=== PATIENT | female | born 1945 | race Caucasian/White ===

== ENCOUNTER 2017-08-10 10:15 | Day surgery (SDC) | payer OTHER ==
[~2017-08-10] VITALS: Ht 165.1 cm; Wt 70.2 kg
[~2017-08-10 10:15] MED LIST: ACET-1757 PO; ACET325T14 PO; ACYC-113 PO; ACYC-114 PO; ALBU8.5H5 INH; ALLO300T PO; AZIT250T PO; BENZ1LOZ51 PO; BUME0.5T PO; CEFD300C37 PO; CHOL2000 PO; CHOL5000 PO; CIPR500S2 PO; CLOT10TR PO; CYAN10002 IM; DOXY100T PO; DULO60CA7 PO; ENOX40SY4 SQ; FLUC100T4 PO; FLUT1DIS3 INH; FOLI-17 PO; FURO-93 PO; HYDR-3237 PO; HYDR-3245 PO; HYDR1TAB16 PO; KETO5DRO RIGHTEYE; LACT-51 PO; LEVE100020 PO; LEVE500T53 PO; LEVO250T23 PO; LEVO500S PO; LEVO500T47 PO; LORA-446 PO; LOVA10TA PO; METR500T PO; MIRT30TA4 PO; Magic Mouthwash; NICO-486 TD; ONDA4TAB13 PO; ONDA4TAB7 PO; OSEL75CA PO; PARO10TA56 PO; PHEN100C PO; PHEN100O3 PEG; POLY17PO5 PO; POTA20PA PO; POTA8CAP PO; PRED10TA PO; PRED20TA PO; PRIM250T PO; PRIM250T34 PO; SERT25TA PO; SIMV20TA3 PO; SMZ/TMP PO; TBO-300S SQ; TRAM50TA2 PO; VENL37.52 PO; VENL75TA2 PO; WARF3TAB; WARF3TAB PO; cyclobenzaprine; potassium
[2017-08-10] MEDS ORDERED: SODIUM CHLORIDE 0.9% 1,000 ML IV SCH (10:38)
[2017-08-10 11:21] VITALS: BP 118/70
[2017-08-10] MEDS ORDERED: LIDOCAINE 2%, 20ML ONE (11:28)
[2017-08-10] MEDS ORDERED: FENTANYL PF 100 MCG/2ML ONE (11:41)
[2017-08-10] MEDS ORDERED: NALOXONE 1 MG/ML, 2ML ONE (11:42)
[2017-08-10] MEDS ORDERED: MIDAZOLAM 1 MG/ML, 5ML ONE (11:42)
[2017-08-10] MEDS ORDERED: FLUMAZENIL 0.1 MG/1 ML, 5ML ONE (11:42)
[2017-08-10 12:05] LABS: HEMATOCRIT 25.8 % (34.6-47.8); HEMOGLOBIN 8.7 g/dL (11.7-16.4)
[2017-08-10 12:06] LABS: DIFF TOTAL CELLS COUNTED 100 CELL DIFF
[2017-08-10 12:51] LABS: ANISOCYTOSIS 1+; OVALOCYTES 1+; VERIFY COUNTS? YES
[2017-08-10 12:53] LABS: SCHISTOCYTES 1+
== END 2017-08-10 14:35 ==
LOC: OUT 10:15
PROVIDERS: ATTEND Internal Medicine Hematology & Oncology
DX: C95.90 Leukemia, unspecified not having achieved remission (principal); Z88.6 Allergy status to analgesic agent; J44.9 Chronic obstructive pulmonary disease, unspecified; Z85.118 Personal history of other malignant neoplasm of bronchus and lung; Z87.891 Personal history of nicotine dependence; Z98.890 Other specified postprocedural states
CPT/HCPCS: 36415; 38221; 77012; 85025; 85097; 88237; 88264; 88280; 88305; 88311; 88313; 99156; G0364; J2250; J3010; J3490; J7030; 99157; J2310

== ENCOUNTER 2017-10-12 16:17 | Inpatient (IN) | payer OTHER ==
[~2017-10-12] VITALS: Ht 165.1 cm; Wt 71.6 kg
[~2017-10-12 16:17] MED LIST changes: +ONDA4TAB13 SL
[2017-10-12 18:28] LABS: ASPARTATE AMINO TRANSFERASE 37 U/L (15-37); BLOOD UREA NITROGEN 15 mg/dL (7-18)
[2017-10-12 18:48] LABS: HEMATOCRIT 27.1 % (34.6-47.8); HEMOGLOBIN 9.3 g/dL (11.7-16.4)
[2017-10-12 18:50] LABS: WHITE BLOOD COUNT 0.7 x10^3/uL (3.4-10)
[2017-10-12 18:53] LABS: DIFF TOTAL CELLS COUNTED 100 CELL DIFF
[2017-10-12 18:58] LABS: VERIFY COUNTS? YES
[2017-10-12 18:59] LABS: ANISOCYTOSIS 1+; POLYCHROMASIA 1+
[2017-10-12] MEDS ORDERED: SODIUM CHLORIDE 0.9% 1,000ML IVBOLUS ONE (19:30)
[2017-10-12] MEDS ORDERED: CEFTRIAXONE PMX 1GM/50ML 50 ML ONE (19:49)
[2017-10-12] MEDS ORDERED: SODIUM CHLORIDE FLUSH 10ML SYR IVF PRN (20:00)
[2017-10-12] MEDS ORDERED: VANCOMYCIN PER PHARMACY MC ONE (20:00)
[2017-10-12] MEDS ORDERED: PHARMACOKINETIC CONSULTATION MC ONE ×2 (20:00→23:45)
[2017-10-12] MEDS ORDERED: CEFTRIAXONE PMX 1GM/50ML 50 ML IVPB ONE (20:00)
[2017-10-12] MEDS ORDERED: VANCOMYCIN 1,400 MG in SODIUM CHLORIDE 0.9% 250 ML IV ONE (20:00)
[2017-10-12] MEDS ORDERED: BISACODYL 10 MG SUPP PR PRN (20:30)
[2017-10-12] MEDS ORDERED: VANCOMYCIN PER PHARMACY MC PRN (20:30)
[2017-10-12] MEDS ORDERED: POLYETHYLENE GLYCOL 17 GM PACKET PO PRN (20:30)
[2017-10-12] MEDS: CEFTRIAXONE PMX 1GM/50ML 50 ML IV SCH (20:36)
[2017-10-12 23:18] VITALS: BP 127/65
[2017-10-12] MEDS ORDERED: PHARMACOKINETIC MONITORING MC PRN (23:45)
[2017-10-12] MEDS: ACETAMINOPHEN 325 MG TABLET PO PRN (23:57)
[2017-10-12] MEDS: LEVETIRACETAM 500 MG TABLET PO SCH (23:58)
[2017-10-12] MEDS: ACYCLOVIR 400 MG TABLET PO SCH (23:58)
[2017-10-12] MEDS: PRIMIDONE 250 MG TABLET PO SCH (23:58)
[2017-10-12] MEDS: SIMVASTATIN 20 MG TABLET PO SCH (23:59)
[2017-10-12] MEDS: SODIUM CHLORIDE FLUSH 10ML SYR IVF SCH (23:59)
[2017-10-13 01:53] VITALS: BP 92/51
[2017-10-13] MEDS: ACETAMINOPHEN 325 MG TABLET PO PRN ×3 (04:07→21:16)
[2017-10-13 04:52] LABS: BLOOD UREA NITROGEN 17 mg/dL (7-18)
[2017-10-13 04:56] LABS: ASPARTATE AMINO TRANSFERASE 38 U/L (15-37)
[2017-10-13 05:41] LABS: DIFF TOTAL CELLS COUNTED 100 CELL DIFF; HEMOGLOBIN 8.7 g/dL (11.7-16.4)
[2017-10-13 06:00] LABS: VERIFY COUNTS? YES
[2017-10-13 06:01] LABS: ANISOCYTOSIS 1+; OVALOCYTES 1+
[2017-10-13 07:50] VITALS: BP 115/74
[2017-10-13] MEDS: FLUCONAZOLE 100 MG TABLET PO SCH (08:28)
[2017-10-13] MEDS: VENLAFAXINE 75 MG CAP ER PO SCH (08:28)
[2017-10-13] MEDS: LEVETIRACETAM 500 MG TABLET PO SCH ×2 (08:28→21:16)
[2017-10-13] MEDS: ACYCLOVIR 400 MG TABLET PO SCH ×2 (08:29→21:16)
[2017-10-13] MEDS: CHOLECALCIFEROL 1,000 UNIT TABLET PO SCH (08:29)
[2017-10-13] MEDS: PRIMIDONE 250 MG TABLET PO SCH ×2 (08:29→21:16)
[2017-10-13] MEDS: SODIUM CHLORIDE FLUSH 10ML SYR IVF SCH ×2 (08:31→21:17)
[2017-10-13] MEDS: SENNA/DOCUSATE TABLET PO SCH (08:31)
[2017-10-13] MEDS: TBO-FILGRASTIM 480 MCG/0.8 ML SQ SCH (11:43)
[2017-10-13 14:05] VITALS: BP 109/59
[2017-10-13] MEDS: ONDANSETRON 2MG/ML, 2ML IVPush PRN (20:05)
[2017-10-13] MEDS: CEFTRIAXONE PMX 1GM/50ML 50 ML IV SCH (20:13)
[2017-10-13 20:43] VITALS: BP 110/62
[2017-10-13] MEDS: SIMVASTATIN 20 MG TABLET PO SCH (21:16)
[2017-10-13] MEDS: VANCOMYCIN 1,400 MG in SODIUM CHLORIDE 0.9% 250 ML IV SCH (22:31)
[2017-10-14] MEDS: ACETAMINOPHEN 325 MG TABLET PO PRN (00:35)
[2017-10-14 01:17] VITALS: BP 115/61
[2017-10-14 05:02] LABS: BLOOD UREA NITROGEN 17 mg/dL (7-18)
[2017-10-14 06:24] LABS: HEMATOCRIT 24.4 % (34.6-47.8); HEMOGLOBIN 8.4 g/dL (11.7-16.4)
[2017-10-14 06:25] LABS: WHITE BLOOD COUNT 0.7 x10^3/uL (3.4-10)
[2017-10-14 06:36] LABS: ANISOCYTOSIS 1+; DIFF TOTAL CELLS COUNTED 50 CELL DIFFERENTIAL; VERIFY COUNTS? YES
[2017-10-14 06:37] LABS: LARGE PLATELETS 1+; OVALOCYTES 1+
[2017-10-14] MEDS: SODIUM CHLORIDE FLUSH 10ML SYR IVF SCH ×2 (08:26→19:57)
[2017-10-14] MEDS: FLUCONAZOLE 100 MG TABLET PO SCH (08:34)
[2017-10-14] MEDS: PRIMIDONE 250 MG TABLET PO SCH ×2 (08:34→21:14)
[2017-10-14] MEDS: CHOLECALCIFEROL 1,000 UNIT TABLET PO SCH (08:35)
[2017-10-14] MEDS: VENLAFAXINE 75 MG CAP ER PO SCH (08:35)
[2017-10-14] MEDS: LEVETIRACETAM 500 MG TABLET PO SCH ×2 (08:35→21:14)
[2017-10-14] MEDS: SENNA/DOCUSATE TABLET PO SCH (08:35)
[2017-10-14] MEDS: ACYCLOVIR 400 MG TABLET PO SCH ×2 (08:35→21:14)
[2017-10-14 09:11] VITALS: BP 122/68
[2017-10-14] MEDS ORDERED: OMNIPAQUE 350 MG/ML, 75ML BOTTLE ONE (11:24)
[2017-10-14] MEDS: TBO-FILGRASTIM 480 MCG/0.8 ML SQ SCH (11:57)
[2017-10-14 15:22] VITALS: BP 112/67
[2017-10-14] MEDS: ONDANSETRON 2MG/ML, 2ML IVPush PRN (19:38)
[2017-10-14] MEDS: CEFTRIAXONE PMX 1GM/50ML 50 ML IV SCH (19:52)
[2017-10-14 20:01] VITALS: BP 108/65
[2017-10-14] MEDS: SIMVASTATIN 20 MG TABLET PO SCH (21:14)
[2017-10-14] MEDS: GABAPENTIN 300 MG CAPSULE PO SCH (21:14)
[2017-10-14] MEDS: VANCOMYCIN 1,400 MG in SODIUM CHLORIDE 0.9% 250 ML IV SCH (22:06)
[2017-10-15 01:37] VITALS: BP 116/66
[2017-10-15 05:28] LABS: BLOOD UREA NITROGEN 11 mg/dL (7-18)
[2017-10-15 06:07] LABS: HEMATOCRIT 23.2 % (34.6-47.8); HEMOGLOBIN 8.1 g/dL (11.7-16.4)
[2017-10-15 06:08] LABS: WHITE BLOOD COUNT 0.7 x10^3/uL (3.4-10)
[2017-10-15 06:10] LABS: DIFF TOTAL CELLS COUNTED 100 CELL DIFF
[2017-10-15 06:21] LABS: ANISOCYTOSIS 1+; OVALOCYTES 1+; VERIFY COUNTS? YES
[2017-10-15 06:22] LABS: LARGE PLATELETS 1+
[2017-10-15 07:10] VITALS: BP 115/65
[2017-10-15] MEDS: SENNA/DOCUSATE TABLET PO SCH (09:00)
[2017-10-15] MEDS: LEVETIRACETAM 500 MG TABLET PO SCH ×2 (10:04→20:51)
[2017-10-15] MEDS: PRIMIDONE 250 MG TABLET PO SCH ×2 (10:04→20:51)
[2017-10-15] MEDS: FLUCONAZOLE 100 MG TABLET PO SCH (10:04)
[2017-10-15] MEDS: SODIUM CHLORIDE FLUSH 10ML SYR IVF SCH ×2 (10:04→20:52)
[2017-10-15] MEDS: ACYCLOVIR 400 MG TABLET PO SCH ×2 (10:04→20:51)
[2017-10-15] MEDS: VENLAFAXINE 75 MG CAP ER PO SCH (10:04)
[2017-10-15] MEDS: CHOLECALCIFEROL 1,000 UNIT TABLET PO SCH (10:05)
[2017-10-15] MEDS ORDERED: OMNIPAQUE 350 MG/ML, 100ML BOTTLE ONE (11:45)
[2017-10-15] MEDS: TBO-FILGRASTIM 480 MCG/0.8 ML SQ SCH (11:56)
[2017-10-15 13:38] VITALS: BP 124/58
[2017-10-15 19:13] VITALS: BP 107/65
[2017-10-15] MEDS: ACETAMINOPHEN 325 MG TABLET PO PRN (19:34)
[2017-10-15] MEDS: CEFTRIAXONE PMX 1GM/50ML 50 ML IV SCH (20:50)
[2017-10-15] MEDS: SIMVASTATIN 20 MG TABLET PO SCH (20:51)
[2017-10-15] MEDS: GABAPENTIN 300 MG CAPSULE PO SCH (20:51)
[2017-10-15] MEDS: VANCOMYCIN 1,400 MG in SODIUM CHLORIDE 0.9% 250 ML IV SCH (22:18)
[2017-10-16] VITALS (9 sets, daily range): BP systolic 99–122; BP diastolic 54–72
[2017-10-16 05:12] LABS: HEMOGLOBIN 7.9 g/dL (11.7-16.4)
[2017-10-16 05:16] LABS: BLOOD UREA NITROGEN 10 mg/dL (7-18)
[2017-10-16 05:46] LABS: HEMATOCRIT 22.5 % (34.6-47.8); WHITE BLOOD COUNT 0.7 x10^3/uL (3.4-10)
[2017-10-16 06:46] LABS: DIFF TOTAL CELLS COUNTED 100 CELL DIFF
[2017-10-16 06:47] LABS: ANISOCYTOSIS 1+; OVALOCYTES 1+; VERIFY COUNTS? YES
[2017-10-16 06:48] LABS: LARGE PLATELETS 1+
[2017-10-16] MEDS: SENNA/DOCUSATE TABLET PO SCH (09:00)
[2017-10-16] MEDS: VENLAFAXINE 75 MG CAP ER PO SCH (09:56)
[2017-10-16] MEDS: ACYCLOVIR 400 MG TABLET PO SCH ×2 (09:56→21:59)
[2017-10-16] MEDS: PRIMIDONE 250 MG TABLET PO SCH ×2 (09:56→22:00)
[2017-10-16] MEDS: LEVETIRACETAM 500 MG TABLET PO SCH ×2 (09:57→21:59)
[2017-10-16] MEDS: SODIUM CHLORIDE FLUSH 10ML SYR IVF SCH ×2 (09:57→22:04)
[2017-10-16] MEDS: FLUCONAZOLE 100 MG TABLET PO SCH (09:57)
[2017-10-16] MEDS: CHOLECALCIFEROL 1,000 UNIT TABLET PO SCH (09:57)
[2017-10-16] MEDS: TBO-FILGRASTIM 480 MCG/0.8 ML SQ SCH (11:14)
[2017-10-16] MEDS: ACETAMINOPHEN 325 MG TABLET PO PRN (11:56)
[2017-10-16] MEDS: GABAPENTIN 300 MG CAPSULE PO SCH (21:59)
[2017-10-16] MEDS: SIMVASTATIN 20 MG TABLET PO SCH (21:59)
[2017-10-16] MEDS: CEFTRIAXONE PMX 1GM/50ML 50 ML IV SCH (22:13)
[2017-10-17] MEDS: VANCOMYCIN 1,400 MG in SODIUM CHLORIDE 0.9% 250 ML IV SCH ×2 (00:55→21:46)
[2017-10-17 03:45] VITALS: BP 120/70
[2017-10-17 04:37] LABS: HEMATOCRIT 27.1 % (34.6-47.8); HEMOGLOBIN 9.2 g/dL (11.7-16.4)
[2017-10-17 04:45] LABS: WHITE BLOOD COUNT 0.9 x10^3/uL (3.4-10)
[2017-10-17 04:48] LABS: BLOOD UREA NITROGEN 10 mg/dL (7-18)
[2017-10-17 05:52] LABS: DIFF TOTAL CELLS COUNTED 50 CELL DIFFERENTIAL
[2017-10-17 05:59] LABS: ANISOCYTOSIS 1+; LARGE PLATELETS 1+; VERIFY COUNTS? YES
[2017-10-17 06:00] LABS: OVALOCYTES 1+
[2017-10-17 06:42] VITALS: BP 112/56
[2017-10-17] MEDS: PRIMIDONE 250 MG TABLET PO SCH ×2 (09:11→21:46)
[2017-10-17] MEDS: ACYCLOVIR 400 MG TABLET PO SCH ×2 (09:11→21:45)
[2017-10-17] MEDS: LEVETIRACETAM 500 MG TABLET PO SCH ×2 (09:11→21:45)
[2017-10-17] MEDS: FLUCONAZOLE 100 MG TABLET PO SCH (09:11)
[2017-10-17] MEDS: VENLAFAXINE 75 MG CAP ER PO SCH (09:11)
[2017-10-17] MEDS: SENNA/DOCUSATE TABLET PO SCH (09:12)
[2017-10-17] MEDS: TBO-FILGRASTIM 480 MCG/0.8 ML SQ SCH (09:12)
[2017-10-17] MEDS: CHOLECALCIFEROL 1,000 UNIT TABLET PO SCH (09:12)
[2017-10-17] MEDS: SODIUM CHLORIDE FLUSH 10ML SYR IVF SCH ×2 (09:13→21:47)
[2017-10-17 15:15] VITALS: BP 104/68
[2017-10-17 18:23] VITALS: BP 123/70
[2017-10-17] MEDS: CEFTRIAXONE PMX 1GM/50ML 50 ML IV SCH (20:13)
[2017-10-17] MEDS: GABAPENTIN 300 MG CAPSULE PO SCH (21:45)
[2017-10-17] MEDS: SIMVASTATIN 20 MG TABLET PO SCH (21:45)
[2017-10-18 02:52] VITALS: BP 119/67
[2017-10-18] MEDS: ACETAMINOPHEN 325 MG TABLET PO PRN ×3 (03:01→20:51)
[2017-10-18 06:00] LABS: BLOOD UREA NITROGEN 8 mg/dL (7-18)
[2017-10-18 07:00] LABS: HEMATOCRIT 24.2 % (34.6-47.8); HEMOGLOBIN 8.6 g/dL (11.7-16.4)
[2017-10-18 07:05] VITALS: BP 113/65
[2017-10-18 07:09] LABS: WHITE BLOOD COUNT 0.6 x10^3/uL (3.4-10)
[2017-10-18 07:10] LABS: DIFF TOTAL CELLS COUNTED 50 CELL DIFFERENTIAL; VERIFY COUNTS? YES
[2017-10-18 07:15] LABS: ANISOCYTOSIS 1+; OVALOCYTES 1+
[2017-10-18 07:16] LABS: LARGE PLATELETS 1+
[2017-10-18] MEDS: SENNA/DOCUSATE TABLET PO SCH (09:00)
[2017-10-18] MEDS: LEVETIRACETAM 500 MG TABLET PO SCH ×2 (09:08→20:51)
[2017-10-18] MEDS: CHOLECALCIFEROL 1,000 UNIT TABLET PO SCH (09:08)
[2017-10-18] MEDS: FLUCONAZOLE 100 MG TABLET PO SCH (09:09)
[2017-10-18] MEDS: PRIMIDONE 250 MG TABLET PO SCH ×2 (09:09→20:51)
[2017-10-18] MEDS: VENLAFAXINE 75 MG CAP ER PO SCH (09:09)
[2017-10-18] MEDS: ACYCLOVIR 400 MG TABLET PO SCH ×2 (09:09→21:07)
[2017-10-18] MEDS: SODIUM CHLORIDE FLUSH 10ML SYR IVF SCH ×2 (09:09→20:48)
[2017-10-18 13:10] VITALS: BP 108/66
[2017-10-18 20:04] VITALS: BP 116/69
[2017-10-18] MEDS: CEFTRIAXONE PMX 1GM/50ML 50 ML IV SCH (20:50)
[2017-10-18] MEDS: GABAPENTIN 300 MG CAPSULE PO SCH (20:51)
[2017-10-18] MEDS: SIMVASTATIN 20 MG TABLET PO SCH (21:07)
[2017-10-18] MEDS: VANCOMYCIN 1,400 MG in SODIUM CHLORIDE 0.9% 250 ML IV SCH (22:11)
[2017-10-19 02:23] VITALS: BP 144/66
[2017-10-19] MEDS: ACETAMINOPHEN 325 MG TABLET PO PRN (03:48)
[2017-10-19 05:06] LABS: BLOOD UREA NITROGEN 8 mg/dL (7-18)
[2017-10-19 05:45] LABS: DIFF TOTAL CELLS COUNTED 100 CELL DIFF
[2017-10-19 05:46] LABS: HEMATOCRIT 25.2 % (34.6-47.8); HEMOGLOBIN 8.7 g/dL (11.7-16.4)
[2017-10-19 05:48] LABS: WHITE BLOOD COUNT 0.8 x10^3/uL (3.4-10)
[2017-10-19 05:58] LABS: ANISOCYTOSIS 1+; OVALOCYTES 1+; VERIFY COUNTS? YES
[2017-10-19 05:59] LABS: LARGE PLATELETS 1+
[2017-10-19 08:00] VITALS: BP 103/70
[2017-10-19] MEDS: ACYCLOVIR 400 MG TABLET PO SCH (08:14)
[2017-10-19] MEDS: VENLAFAXINE 75 MG CAP ER PO SCH (08:14)
[2017-10-19] MEDS: SENNA/DOCUSATE TABLET PO SCH (08:15)
[2017-10-19] MEDS: FLUCONAZOLE 100 MG TABLET PO SCH (08:15)
[2017-10-19] MEDS: LEVETIRACETAM 500 MG TABLET PO SCH (08:15)
[2017-10-19] MEDS: PRIMIDONE 250 MG TABLET PO SCH (08:15)
[2017-10-19] MEDS: CHOLECALCIFEROL 1,000 UNIT TABLET PO SCH (08:16)
[2017-10-19] MEDS: SODIUM CHLORIDE FLUSH 10ML SYR IVF SCH (08:17)
[2017-10-19] MEDS ORDERED: DOXY100T PO (11:14)
[2017-10-19] MEDS ORDERED: CEFD300C37 PO (11:14)
[2017-10-19 13:57] VITALS: BP 121/63
== END 2017-10-19 15:30 | disposition home health service (06) | DRG 811 ==
LOC: ED 19:29 → EDIP 19:55 → 3NW 22:53
PROVIDERS: ADMIT Hospitalist; ATTEND Hospitalist
PROC: 30233N1 Transfusion of Nonautologous Red Blood Cells into Peripheral Vein, Percutaneous Approach (ICD-10-PCS; principal; 2017-10-16)
DX: D46.9 Myelodysplastic syndrome, unspecified (principal); J18.9 Pneumonia, unspecified organism; E44.0 Moderate protein-calorie malnutrition; J96.10 Chronic respiratory failure, unspecified whether with hypoxia or hypercapnia; D70.9 Neutropenia, unspecified; Q93.9 Deletion from autosomes, unspecified; Z99.81 Dependence on supplemental oxygen; J44.0 Chronic obstructive pulmonary disease with (acute) lower respiratory infection; J44.9 Chronic obstructive pulmonary disease, unspecified; G40.909 Epilepsy, unspecified, not intractable, without status epilepticus; R50.81 Fever presenting with conditions classified elsewhere; M81.0 Age-related osteoporosis without current pathological fracture; F32.9 Major depressive disorder, single episode, unspecified; R31.9 Hematuria, unspecified; R60.0 Localized edema; R00.0 Tachycardia, unspecified; I10 Essential (primary) hypertension; Z92.21 Personal history of antineoplastic chemotherapy; Z87.891 Personal history of nicotine dependence; Z83.3 Family history of diabetes mellitus; Z82.5 Family history of asthma and other chronic lower respiratory diseases; Z85.118 Personal history of other malignant neoplasm of bronchus and lung; Z88.5 Allergy status to narcotic agent; Z88.0 Allergy status to penicillin; Z68.26 Body mass index [BMI] 26.0-26.9, adult
CPT/HCPCS: 36415; 71010; 71260; 74177; 80048; 80053; 80202; 81001; 85025; 86850; 86900; 86923; 87040; 87205; 96365; J0696; J2405; J3370; Q9967; J1447; J7030; J7050; P9016